=== PATIENT | male | born 1975 | race Two or more races ===

== ENCOUNTER 2020-03-01 22:25 | Emergency (ER) | payer MEDICARE ==
[2020-03-01] MEDS ORDERED: SILVADENE 50 GM TP ONE ×2 (23:00→23:22)
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
[2020-03-01 23:08] VITALS: O2SAT 98
[2020-03-01] MEDS ORDERED: MOTRIN 600 MG PO ONE (23:08)
[2020-03-01 23:21] VITALS: BP 119/92; PULSE 68
[2020-03-01] MEDS ORDERED: MOTRIN 600 MG ONE (23:21)
== END 2020-03-01 23:37 | disposition home or self-care (01) ==
LOC: ED 22:25
DX: T23.071A Burn of unspecified degree of right wrist, initial encounter (principal); T31.0 Burns involving less than 10% of body surface; V49.49XA Driver injured in collision with other motor vehicles in traffic accident, initial encounter; W22.10XA Striking against or struck by unspecified automobile airbag, initial encounter; Y93.9 Activity, unspecified; Y92.9 Unspecified place or not applicable
CPT/HCPCS: 99283; A9270-GY

== ENCOUNTER 2020-08-17 16:45 | Emergency (ER) | payer MEDICARE ==
[2020-08-17] MEDS ORDERED: Sodium Chloride 0.9% 1000 ML 1,000 ML IV STA (17:09)
[2020-08-17] MEDS ORDERED: TORAdol 30 mg Injection IV ONE (17:09)
[2020-08-17] MEDS ORDERED: Sodium Chloride 0.9% 1000 ML 1,000 ML ONE (17:20)
[2020-08-17] MEDS ORDERED: TORAdol 30 mg Injection ONE (17:20)
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
[2020-08-17 17:32] LABS: Absolute Neutrophil Ct (ANC) 3.22 (1.4-6.9); BASOPHIL % 0.2 % (0.0-0.4); Basophil (Absolute #) 0.01 (0-0.4); Eosinophil % 1.9 % (0.00-5.0); Hematocrit 41.7 % (42-50); Hemoglobin 13.7 gm/dl (12.5-18.0); Lymphocyte (Absolute #) 1.58 (1.0-4.6); Lymphocytes % 29.3 % (24.0-44.0); Mean Cell Volume 96.8 fl (78-100); Mean Corpuscular Hemoglobin 31.8 pg (26-32); Mean Corpuscular Hgb Concent. 32.9 g/dl (32-36); Mean Platelet Volume 10.4 fl (7.5-11.0); Monocyte (Absolute #) 0.48 (0.0-1.3); Monocytes % 8.9 % (0.0-12.0); Neutrophil % 59.7 % (36.0-66.0); Platelet Count 140 K/mm3 (150-450); Red Blood Count 4.31 M/mm3 (4.1-5.6); Red Cell Distribution Width 11.6 % (11.5-14.0); White Blood Count 5.4 K/mm3 (4.0-10.5)
[2020-08-17 17:40] LABS: Appearance CLOUDY (CLEAR); Bilirubin NEGATIVE (NEGATIVE); Blood NEGATIVE Ery/ul (0-5); Glucose NEGATIVE (NEGATIVE); Ketones NEGATIVE (NEGATIVE); Leukocyte Esterase NEGATIVE (NEGATIVE); Mucus SLIGHT /HPF (NEGATIVE); Nitrite NEGATIVE (NEGATIVE); Protein,Urine Dip 30 (Negative); Specific Gravity 1.029 (1.005-1.025); Urobilinogen 4 mg/dL (0-1)
[2020-08-17 17:43] LABS: ALBUMIN 4.4 g/dL (3.5-5.0); ALKALINE PHOSPHATASE 51 U/L (38-126); ANION GAP 8.2 MEQ/L (5-15); BLOOD UREA NITROGEN 18 mg/dL (9-20); CHLORIDE 104 mmol/L (98-107); Calcium 9.4 mg/dL (8.4-10.2); Carbon Dioxide 30 mmol/L (22-30); Creatinine 1 0.92 mg/dL (0.66-1.25); EST GLOMERULAR FILTRATION RATE > 60.0 ML/MIN; Glucose 103 mg/dL (74-106); Potassium 4.2 mmol/L (3.5-5.1); SGOT/AST 22 U/L (17-59); SGPT/ALT 14 U/L (0-50); SODIUM 139 mmol/L (137-145); Total Protein 7.1 g/dL (6.3-8.2)
[2020-08-17] MEDS ORDERED: MORPHINE SULFATE 4 MG INJ ONE (17:51)
[2020-08-17] MEDS ORDERED: Zofran 4 MG/2 ML VIAL ONE (17:51)
[2020-08-17] MEDS ORDERED: Zofran 4 MG/2 ML VIAL IV ONE (17:56)
[2020-08-17] MEDS ORDERED: MORPHINE SULFATE 4 MG INJ IV ONE (17:56)
[2020-08-17 18:43] VITALS: BP 121/86; PULSE 68
[2020-08-17 19:43] VITALS: O2SAT 98
== END 2020-08-17 18:47 | disposition home or self-care (01) ==
LOC: ED 16:45
DX: R53.83 Other fatigue (principal); M54.9 Dorsalgia, unspecified; M54.2 Cervicalgia; M25.532 Pain in left wrist; M25.531 Pain in right wrist; M19.90 Unspecified osteoarthritis, unspecified site; R53.81 Other malaise
CPT/HCPCS: 36000; 36415; 80053; 81001; 85025; 96360; 96374; 96375; 99284; J1885; J2270; J2405